=== PATIENT | female | born 1975 | race Caucasian/White ===

== ENCOUNTER 2016-09-28 17:46 | Emergency (ER) | payer SELFPAY ==
[~2016-09-28] VITALS: Ht 162.6 cm; Wt 79.0 kg
[~2016-09-28 17:46] MED LIST: ALBUTEROL0.5 % IN; AMOXICILLIN500 MG OR; AMOXICILLIN500 MG PO; AUGMENTIN875TAB PO; CEPHALEXIN500 MG OR; DIFLUCAN150 MG PO; KEFLEX500 MG OR; LORTAB 5 OR; LORTAB5 PO; MEDDOSEPAK PO; MOTRIN800 MG OR; NAPROXEN500 MG PO; PERCOCET 5/325M1 TAB PO; VENTOLIN HFA IN; ZITHROMAX500 MG PO
[2016-09-28] MEDS ORDERED: MAXZIDE-2537.5 MG/TA PO (18:15)
[2016-09-28] MEDS ORDERED: [UNRECOGNIZED DRUG - OTHER] PO (18:27)
[2016-09-28 18:44] LABS: HEMATOCRIT 38.7 % (37.0-47.0); HEMOGLOBIN 12.4 g/dl (12.0-16.0); IMMATURE GRANULOCYTES 0.2 % (0.0-1.0); MEAN CELL VOLUME 79.5 fL CALC (80.0-100.0); MEAN CORPUSCULAR HGB 25.5 pG CALC (26.0-32.0); NEUT# 6.48 thou/uL (2.00-7.15); RED BLOOD COUNT 4.87 mill/uL (4.20-5.60); RED CELL DISTRI WIDTH 17.6 % (11.5-15.5)
[2016-09-28 18:56] LABS: ALBUMIN 4.5 g/dL (3.2-5.0); ALKALINE PHOSPHATASE 67 u/l (38-126); ANION GAP 15 (6-22 (CALC)); BILIRUBIN, TOTAL 0.4 mg/dL (0.0-1.4); BUN 9 mg/dL (7-17); BUN/CREATININE RATIO 9 (12-20 (CALC)); CALCIUM 9.2 mg/dL (8.4-10.2); CARBON DIOXIDE 26 mmol/l (22-30); CHLORIDE 101 mmol/l (95-108); GFR > 60 ML/MIN (>=60 (CALC)); GFR FOR AFR.AMER. > 60 ML/MIN (>=60 (CALC)); GLUCOSE 82 mg/dL (65-105); POTASSIUM 3.2 mmol/l (3.5-5.1); SGOT/AST 33 u/l (14-36); SGPT/ALT 27 u/l (9-52); SODIUM 138 mmol/l (137-146); TOTAL PROTEIN 7.8 g/dL (6.3-8.2)
[2016-09-28 19:08] LABS: MYOGLOBIN 34 ng/mL (0 - 62)
[2016-09-28 20:20] VITALS: BP 108/57
== END 2016-09-28 20:14 | disposition left against medical advice (07) | DRG 313 ==
LOC: ED 17:46
PROVIDERS: Emergency Medicine
DX: R07.9 Chest pain, unspecified (principal); Z91.19 Patient's noncompliance with other medical treatment and regimen

== ENCOUNTER 2018-08-17 11:27 | Day surgery (SDC) | payer OTHER ==
[~2018-08-17 11:27] MED LIST changes: +ACID CONTROL PO; +CALCIUM500 M3 PO; +FERROUS SULF325 M3 PO; +MAXZIDE-2537.5 MG/TA PO; +[UNRECOGNIZED DRUG - OTHER] PO
[2018-08-17 14:42] VITALS: BP 118/68
== END 2018-08-17 15:00 | disposition home or self-care (01) | DRG 382 ==
LOC: ENDO 11:27 → ORM 11:40 → ENDO 12:10
PROVIDERS: ATTEND Internal Medicine Gastroenterology
PROC: 0DB48ZX Excision of Esophagogastric Junction, Via Natural or Artificial Opening Endoscopic, Diagnostic (ICD-10-PCS; principal; 2018-08-17)
PROC: 0D758DZ Dilation of Esophagus with Intraluminal Device, Via Natural or Artificial Opening Endoscopic (ICD-10-PCS; 2018-08-17)
DX: K22.70 Barrett's esophagus without dysplasia (principal); K22.2 Esophageal obstruction; K29.70 Gastritis, unspecified, without bleeding; K44.9 Diaphragmatic hernia without obstruction or gangrene; K59.00 Constipation, unspecified; K62.5 Hemorrhage of anus and rectum; Z98.84 Bariatric surgery status

== ENCOUNTER 2021-11-27 10:00 | Observation (INO) | payer OTHER ==
[2021-11-27] VITALS (9 sets, daily range): BP systolic 118–182; BP diastolic 63–90
[~2021-11-27] VITALS: Ht 165.1 cm; Wt 75.0 kg
[2021-11-27 10:33] LABS: URINE BILIRUBIN - DIPSTICK NEGATIVE (NEGATIVE); URINE BLOOD DIPSTICK TRACE-INTACT (NEGATIVE); URINE COLOR YELLOW; URINE GLUCOSE - DIPSTICK NEGATIVE (NEGATIVE); URINE KETONE 15 mg/dL (NEGATIVE); URINE LEUK ESTERASE NEGATIVE (NEGATIVE); URINE PROTEIN - DIPSTICK NEGATIVE (NEG-TRACE); URINE SPECIFIC GRAVITY 1.015; URINE UROBILINOGEN - DIPSTICK 0.2 E.U./dL (0.2)
[2021-11-27 10:35] LABS: URINE NITRITE - DIPSTICK NEGATIVE (Negative)
[2021-11-27 10:36] LABS: HEMATOCRIT 41.4 % (37.0-47.0); HEMOGLOBIN 12.9 g/dl (12.0-16.0); IMMATURE GRANULOCYTES 0.2 % (0.0-5.0); MEAN CELL VOLUME 83.1 fL CALC (80.0-100.0); MEAN CORPUSCULAR HGB 25.9 pG CALC (26.0-32.0); MEAN CORPUSCULAR HGB CONC 31.2 g/dL CAL (32.0-36.0); NEUT# 11.14 thou/uL (2.00-7.15); RED BLOOD COUNT 4.98 mill/uL (4.20-5.60); RED CELL DISTRI WIDTH 20.7 % (11.5-15.5)
[2021-11-27 10:37] LABS: GFR > 60 ML/MIN (>=60 (CALC)); GFR FOR AFR.AMER. > 60 ML/MIN (>=60 (CALC))
[2021-11-27 11:10] LABS: ALBUMIN 4.9 g/dL (3.2-5.0); ALKALINE PHOSPHATASE 91 u/l (38-126); ANION GAP 14 (6-22 (CALC)); BILIRUBIN, TOTAL 0.6 mg/dL (0.0-1.4); BUN 4 mg/dL (7-17); BUN/CREATININE RATIO 5 (12-20 (CALC)); CARBON DIOXIDE 22 mmol/l (22-30); CHLORIDE 104 mmol/l (95-108); CREATININE 0.8 mg/dL (0.5-1.0); GFR > 60 ML/MIN (>=60 (CALC)); GFR FOR AFR.AMER. > 60 ML/MIN (>=60 (CALC)); LIPASE 64 u/l (23-300); MAGNESIUM 1.7 mg/dL (1.6-2.3); POTASSIUM 3.6 mmol/l (3.5-5.1); SGOT/AST 26 u/l (14-36); SODIUM 136 mmol/l (137-146); TOTAL PROTEIN 7.9 g/dL (6.3-8.2)
[2021-11-27] MEDS ORDERED: OMEPRAZOLE DR40 MG PO (12:13)
[2021-11-27] MEDS ORDERED: VENTOLIN HFA IN (12:13)
[2021-11-27] MEDS ORDERED: MAXZIDE-25MG1 COMBO PO (12:14)
[2021-11-28 04:32] VITALS: BP 113/60
[2021-11-28 05:22] LABS: IMMATURE GRANULOCYTES 0.2 % (0.0-5.0); MEAN CELL VOLUME 84.9 fL CALC (80.0-100.0); MEAN CORPUSCULAR HGB 26.2 pG CALC (26.0-32.0); MEAN CORPUSCULAR HGB CONC 30.9 g/dL CAL (32.0-36.0); NEUT# 9.43 thou/uL (2.00-7.15); RED BLOOD COUNT 3.97 mill/uL (4.20-5.60); RED CELL DISTRI WIDTH 20.6 % (11.5-15.5)
[2021-11-28 05:30] LABS: HEMATOCRIT 33.7 % (37.0-47.0); HEMOGLOBIN 10.4 g/dl (12.0-16.0)
[2021-11-28 05:36] LABS: ANION GAP 10 (6-22 (CALC)); BUN 6 mg/dL (7-17); BUN/CREATININE RATIO 8 (12-20 (CALC)); CARBON DIOXIDE 22 mmol/l (22-30); CHLORIDE 108 mmol/l (95-108); CREATININE 0.7 mg/dL (0.5-1.0); GFR > 60 ML/MIN (>=60 (CALC)); GFR FOR AFR.AMER. > 60 ML/MIN (>=60 (CALC)); MAGNESIUM 2.1 mg/dL (1.6-2.3); POTASSIUM 3.5 mmol/l (3.5-5.1); SODIUM 135 mmol/l (137-146)
[2021-11-28] MEDS ORDERED: BACTRIM DS1 TAB PO (09:45)
[2021-11-28] MEDS ORDERED: ONDANSETRON4 MG PO (09:45)
[2021-11-28] MEDS ORDERED: PERCOCET 5/325M1 TAB PO (09:47)
== END 2021-11-28 11:10 | disposition home or self-care (01) | DRG 392 ==
LOC: ED 10:00 → ED-I 10:32 → ED 10:32 → ED-I 11:40 → ED 12:00 → MS2 12:01
PROVIDERS: Family Medicine; ADMIT Internal Medicine; ATTEND Internal Medicine
DX: K52.9 Noninfective gastroenteritis and colitis, unspecified (principal); K44.9 Diaphragmatic hernia without obstruction or gangrene; J45.909 Unspecified asthma, uncomplicated; Z87.11 Personal history of peptic ulcer disease; Z98.84 Bariatric surgery status; Z20.822 Contact with and (suspected) exposure to COVID-19
CPT/HCPCS: G0378; J1650; Q9967

== ENCOUNTER 2022-01-13 18:07 | Emergency (ER) | payer OTHER ==
[~2022-01-13] VITALS: Ht 165.1 cm; Wt 72.7 kg
[~2022-01-13 18:07] MED LIST changes: +BACTRIM DS1 TAB PO; +MAXZIDE-25MG1 COMBO PO; +OMEPRAZOLE DR40 MG PO; +ONDANSETRON4 MG PO
[2022-01-13 19:44] LABS: IMMATURE GRANULOCYTES 0.2 % (0.0-5.0); MEAN CELL VOLUME 88.3 fL CALC (80.0-100.0); MEAN CORPUSCULAR HGB 28.8 pG CALC (26.0-32.0); MEAN CORPUSCULAR HGB CONC 32.5 g/dL CAL (32.0-36.0); NEUT# 13.09 thou/uL (2.00-7.15); RED BLOOD COUNT 4.8 mill/uL (4.20-5.60); RED CELL DISTRI WIDTH 20.2 % (11.5-15.5)
[2022-01-13 19:47] LABS: HEMATOCRIT 42.4 % (37.0-47.0); HEMOGLOBIN 13.8 g/dl (12.0-16.0)
[2022-01-13 20:03] LABS: ALBUMIN 4.6 g/dL (3.2-5.0); ALKALINE PHOSPHATASE 96 u/l (38-126); AMYLASE 69 u/l (30-110); BUN 5 mg/dL (7-17); BUN/CREATININE RATIO 8 (12-20 (CALC)); CARBON DIOXIDE 24 mmol/l (22-30); CREATININE 0.7 mg/dL (0.5-1.0); GFR FOR AFR.AMER. > 60 ML/MIN (>=60 (CALC)); GFR OTHER RACES > 60 ML/MIN (>=60 (CALC)); LIPASE 56 u/l (23-300); POTASSIUM 2.9 mmol/l (3.5-5.1); SGOT/AST 25 u/l (14-36); SODIUM 129 mmol/l (137-146); TOTAL PROTEIN 7.8 g/dL (6.3-8.2)
[2022-01-13 20:04] LABS: ANION GAP 13 (6-22 (CALC)); BILIRUBIN, TOTAL 0.3 mg/dL (0.0-1.4); CHLORIDE 95 mmol/l (95-108)
[2022-01-13 20:15] LABS: MYOGLOBIN 27 ng/mL (0 - 62)
[2022-01-13 21:28] VITALS: BP 157/91
[2022-01-13 21:31] VITALS: BP 153/83
[2022-01-13] MEDS ORDERED: PROMETHAZINE HY25 M1 PO (22:00)
[2022-01-13 22:03] VITALS: BP 158/87
[2022-01-13 22:30] VITALS: BP 161/105
[2022-01-13 22:34] VITALS: BP 161/105
== END 2022-01-13 22:39 | disposition home or self-care (01) | DRG 392 ==
LOC: ED 18:07
PROVIDERS: Emergency Medicine
DX: R11.2 Nausea with vomiting, unspecified (principal); R10.9 Unspecified abdominal pain; E87.6 Hypokalemia; E87.1 Hypo-osmolality and hyponatremia; Z90.710 Acquired absence of both cervix and uterus; Z98.84 Bariatric surgery status
CPT/HCPCS: Q9967

== ENCOUNTER 2022-09-14 14:49 | Emergency (ER) | payer OTHER ==
[~2022-09-14] VITALS: Ht 165.1 cm; Wt 83.0 kg
[~2022-09-14 14:49] MED LIST changes: +PROMETHAZINE HY25 M1 PO
[2022-09-14 15:13] VITALS: BP 116/87
[2022-09-14] MEDS ORDERED: ARNUITY EL100 MCG/AC PO ×2 (15:36→17:03)
[2022-09-14] MEDS ORDERED: VENTOLIN HFA108 MCG PO ×2 (15:36→17:03)
[2022-09-14] MEDS ORDERED: PREDNISONE50 MG PO ×2 (15:36→17:03)
[2022-09-14 16:00] VITALS: BP 112/58
[2022-09-14] MEDS ORDERED: ZPAK PO ×2 (16:26→17:03)
[2022-09-14 16:54] VITALS: BP 112/58
== END 2022-09-14 17:00 | disposition home or self-care (01) | DRG 203 ==
LOC: ED 14:49
DX: J45.901 Unspecified asthma with (acute) exacerbation (principal); Z20.822 Contact with and (suspected) exposure to COVID-19; J06.9 Acute upper respiratory infection, unspecified

== ENCOUNTER 2023-09-25 09:22 | Emergency (ER) | payer OTHER ==
[~2023-09-25] VITALS: Ht 165.1 cm; Wt 78.8 kg
[~2023-09-25 09:22] MED LIST changes: +ARNUITY EL100 MCG/AC PO; +PREDNISONE50 MG PO; +VENTOLIN HFA108 MCG PO; +ZPAK PO
[2023-09-25] MEDS ORDERED: LYRICA100 MG PO (10:31)
[2023-09-25] MEDS ORDERED: HYDROXYCHLOROQ200 MG PO (10:32)
[2023-09-25 10:38] VITALS: BP 121/104
[2023-09-25 10:45] VITALS: BP 108/69
[2023-09-25 11:10] LABS: URINE BILIRUBIN - DIPSTICK Negative (NEGATIVE); URINE BLOOD DIPSTICK Negative (NEGATIVE); URINE GLUCOSE - DIPSTICK Negative (NEGATIVE); URINE KETONE Negative (NEGATIVE); URINE LEUK ESTERASE Negative (NEGATIVE); URINE NITRITE - DIPSTICK Negative (Negative); URINE PH 7.5 (4.5-8.0); URINE PROTEIN - DIPSTICK Negative (NEG-TRACE); URINE SPECIFIC GRAVITY 1.015; URINE UROBILINOGEN - DIPSTICK 0.2 E.U./dL (0.2)
[2023-09-25 11:11] LABS: URINE COLOR Yellow
[2023-09-25 11:15] VITALS: BP 106/75
[2023-09-25 11:26] LABS: BASO% 0.7 % (0-3); EOS% 2.8 % (0-8); HEMATOCRIT 39.6 % (37.0-47.0); HEMOGLOBIN 12.9 g/dl (12.0-16.0); IMMATURE GRANULOCYTES 0.1 % (0.0-5.0); LYMPH% 16.3 % (15-41); MEAN CORPUSCULAR HGB 30.9 pG CALC (26.0-32.0); MEAN CORPUSCULAR HGB CONC 32.6 g/dL CAL (32.0-36.0); MONO% 6.7 % (2-13); NEUT# 7.82 thou/uL (2.00-7.15); NEUT% 73.4 % (42-76); RED BLOOD COUNT 4.18 mill/uL (4.20-5.60); RED CELL DISTRI WIDTH 12.8 % (11.5-15.5)
[2023-09-25 11:27] LABS: MEAN CELL VOLUME 94.7 fL CALC (80.0-100.0)
[2023-09-25 11:54] LABS: ALBUMIN 3.8 g/dL (3.2-5.0); ALKALINE PHOSPHATASE 69 u/l (38-126); ANION GAP 7 (6-22 (CALC)); BILIRUBIN, TOTAL 0.4 mg/dL (0.02-1.3); BUN 11 mg/dL (7-17); BUN/CREATININE RATIO 12 (12-20 (CALC)); CARBON DIOXIDE 27 mmol/l (22-30); CHLORIDE 106 mmol/l (95-108); CREATININE 0.9 mg/dL (0.5-1.0); GFR FOR AFR.AMER. > 60 ML/MIN (>=60 (CALC)); GFR OTHER RACES > 60 ML/MIN (>=60 (CALC)); POTASSIUM 3.5 mmol/l (3.5-5.1); SGOT/AST 42 u/l (14-36); SODIUM 136 mmol/l (137-146); TOTAL PROTEIN 6.2 g/dL (6.3-8.2)
[2023-09-25] MEDS ORDERED: SODIUM CHLORIDE 0.9% 1,000 ML IV ONE (12:10)
[2023-09-25 13:51] VITALS: BP 118/80
[2023-09-25 13:57] VITALS: BP 118/80
== END 2023-09-25 13:57 | disposition home or self-care (01) | DRG 948 ==
LOC: ED 09:22
PROVIDERS: Family Medicine
DX: R53.83 Other fatigue (principal); I10 Essential (primary) hypertension; M79.7 Fibromyalgia; M35.00 Sjogren syndrome, unspecified; Z20.822 Contact with and (suspected) exposure to COVID-19

== ENCOUNTER 2024-03-28 15:09 | Emergency (ER) | payer BC ==
[~2024-03-28] VITALS: Ht 165.1 cm; Wt 77.1 kg
[2024-03-28] VITALS (14 sets, daily range): BP systolic 87–170; BP diastolic 65–97
[~2024-03-28 15:09] MED LIST changes: +HYDROXYCHLOROQ200 MG PO; +LYRICA100 MG PO
[2024-03-28] MEDS ORDERED: MORPHINE SULFATE 4 MG/ML VIAL IV ONE (15:20)
[2024-03-28] MEDS ORDERED: SODIUM CHLORIDE 0.9% 1,000 ML IV ONE ×2 (15:20→17:50)
[2024-03-28] MEDS ORDERED: ONDANSETRON HCl 4 MG/2 ML SDV IV ONE (15:20)
[2024-03-28 15:48] LABS: BASO% 0.3 % (0-3); EOS% 0.6 % (0-8); HEMATOCRIT 44.9 % (37.0-47.0); HEMOGLOBIN 14.8 g/dl (12.0-16.0); IMMATURE GRANULOCYTES 0.5 % (0.0-5.0); LYMPH% 18.5 % (15-41); MEAN CELL VOLUME 93.5 fL CALC (80.0-100.0); MEAN CORPUSCULAR HGB 30.8 pG CALC (26.0-32.0); MONO% 5.6 % (2-13); NEUT# 13.98 thou/uL (2.00-7.15); NEUT% 74.5 % (42-76); RED BLOOD COUNT 4.8 mill/uL (4.20-5.60); RED CELL DISTRI WIDTH 12.9 % (11.5-15.5)
[2024-03-28 16:04] LABS: ALBUMIN 4.8 g/dL (3.2-5.0); BILIRUBIN, TOTAL 0.5 mg/dL (0.02-1.3); CREATININE 0.7 mg/dL (0.5-1.0); POTASSIUM 3.7 mmol/l (3.5-5.1); TOTAL PROTEIN 7.5 g/dL (6.3-8.2)
[2024-03-28] MEDS ORDERED: PROMETHAZINE HCL 25 MG/ML AMP IM ONE (16:25)
[2024-03-28] MEDS ORDERED: LACTATED RINGER'S 1,000 ML IV ONE (19:45)
[2024-03-28 19:48] LABS: URINE BILIRUBIN - DIPSTICK Negative (NEGATIVE); URINE BLOOD DIPSTICK Trace-intact (NEGATIVE); URINE GLUCOSE - DIPSTICK Negative (NEGATIVE); URINE KETONE 15 mg/dL (NEGATIVE); URINE LEUK ESTERASE Negative (NEGATIVE); URINE NITRITE - DIPSTICK Negative (Negative); URINE PROTEIN - DIPSTICK Negative (NEG-TRACE); URINE UROBILINOGEN - DIPSTICK 0.2 E.U./dL (0.2)
[2024-03-28 19:50] LABS: URINE COLOR Yellow
[2024-03-28] MEDS ORDERED: PROMETHAZINE HCL 25 MG/ML AMP IV ONE (20:00)
[2024-03-28] MEDS ORDERED: PROMETHAZINE HY25 M1 PO (20:45)
== END 2024-03-28 22:00 | disposition home or self-care (01) | DRG 392 ==
LOC: ED 15:09
PROVIDERS: Family Medicine
DX: A08.4 Viral intestinal infection, unspecified (principal); K51.90 Ulcerative colitis, unspecified, without complications
CPT/HCPCS: Q9967

== ENCOUNTER 2024-04-02 12:29 | Observation (INO) | payer BC ==
[2024-04-02] VITALS (8 sets, daily range): BP systolic 96–157; BP diastolic 59–103
[~2024-04-02] VITALS: Ht 165.1 cm; Wt 77.0 kg
[2024-04-02] MEDS ORDERED: SODIUM CHLORIDE 0.9% 1,000 ML IV ONE ×2 (12:40→17:15)
[2024-04-02] MEDS ORDERED: ONDANSETRON HCl 4 MG/2 ML SDV IV ONE (12:40)
[2024-04-02] MEDS ORDERED: ONDANSETRON HCl 4 MG/2 ML SDV IV STA (12:56)
[2024-04-02] MEDS ORDERED: Pantoprazole Sodium 40 MG VIAL (Protonix) IV ONE (13:00)
[2024-04-02] MEDS ORDERED: PROMETHAZINE HCL 25 MG/ML AMP IV ONE (13:00)
[2024-04-02] MEDS ORDERED: FAMOTIDINE 10MG/ML 2ML SDV IV ONE (13:00)
[2024-04-02 13:15] LABS: BASO% 0.2 % (0-3); EOS% 0.6 % (0-8); HEMATOCRIT 43.1 % (37.0-47.0); HEMOGLOBIN 15.1 g/dl (12.0-16.0); IMMATURE GRANULOCYTES 0.6 % (0.0-5.0); LYMPH% 20.8 % (15-41); MEAN CELL VOLUME 88.1 fL CALC (80.0-100.0); MEAN CORPUSCULAR HGB 30.9 pG CALC (26.0-32.0); MONO% 5.6 % (2-13); NEUT# 12.75 thou/uL (2.00-7.15); NEUT% 72.2 % (42-76); RED BLOOD COUNT 4.89 mill/uL (4.20-5.60); RED CELL DISTRI WIDTH 12.4 % (11.5-15.5)
[2024-04-02 13:24] LABS: ALBUMIN 4.3 g/dL (3.2-5.0); BILIRUBIN, TOTAL 0.8 mg/dL (0.02-1.3); CREATININE 0.9 mg/dL (0.5-1.0); POTASSIUM 2.9 mmol/l (3.5-5.1)
[2024-04-02] MEDS ORDERED: SODIUM CHLORIDE 0.9% 1,000 ML IV STA (13:42)
[2024-04-02] MEDS ORDERED: PROMETHAZINE HCL 25 MG/ML AMP IM ONE (13:50)
[2024-04-02] MEDS ORDERED: POTASSIUM CHLORIDE 20MEQ 100 ML IV ONE (14:20)
[2024-04-02] MEDS ORDERED: MORPHINE SULFATE 4 MG/ML VIAL IV STA (14:43)
[2024-04-02 14:55] LABS: URINE BLOOD DIPSTICK Trace-lysed (NEGATIVE); URINE GLUCOSE - DIPSTICK Negative (NEGATIVE); URINE KETONE 80 mg/dL (NEGATIVE); URINE LEUK ESTERASE Negative (NEGATIVE); URINE NITRITE - DIPSTICK Negative (Negative); URINE PH 7.5 (4.5-8.0); URINE PROTEIN - DIPSTICK 30 mg/dL (NEG-TRACE); URINE UROBILINOGEN - DIPSTICK 0.2 E.U./dL (0.2)
[2024-04-02 14:57] LABS: URINE COLOR Yellow
[2024-04-02 15:03] LABS: URINE AMORPH SEDIMENT MANY hpf (NONE-FEW)
[2024-04-02 15:05] LABS: URINE RBC 0-2 RBC/hpf (0-5)
[2024-04-02 15:06] LABS: URINE SQUAMOUS EPITHELIAL CELL FEW EPI/hpf (0-FEW); URINE WBC 0-2 WBC/hpf (0-5)
[2024-04-02] MEDS ORDERED: PIPERACILLIN Sodium-Tazobactam 3.375 GM in SODIUM CHLORIDE 0.9% 100 ML IV ONE (17:15)
[2024-04-02] MEDS ORDERED: ONDANSETRON HCl 4 MG/2 ML SDV IV PRN (17:25)
[2024-04-02] MEDS ORDERED: MAGNESIUM HYDROXIDE 30 ML UDC PO PRN (17:25)
[2024-04-02] MEDS ORDERED: PROMETHAZINE HCL 25 MG/ML AMP IV PRN (17:25)
[2024-04-02] MEDS ORDERED: ACETAMINOPHEN 325 MG/TAB PO PRN (17:25)
[2024-04-02] MEDS ORDERED: SODIUM CHLORIDE 0.9% 1,000 ML IV PRN (17:25)
[2024-04-02] MEDS ORDERED: ENOXAPARIN SODIUM 40 MG/0.4 ML SYR SC SCH (21:00)
[2024-04-02] MEDS ORDERED: MORPHINE SULFATE 4 MG/ML VIAL IV PRN (22:20)
[2024-04-03] VITALS (9 sets, daily range): BP systolic 92–124; BP diastolic 44–67
[2024-04-03] MEDS ORDERED: SODIUM CHLORIDE 0.9% 10 ML SYR IV PRN (03:05)
[2024-04-03] MEDS ORDERED: SODIUM CHLORIDE 0.9% 10 ML SYR IV SCH (06:00)
[2024-04-03 08:04] LABS: BASO% 0.5 % (0-3); EOS% 1.6 % (0-8); HEMATOCRIT 34.8 % (37.0-47.0); HEMOGLOBIN 11.9 g/dl (12.0-16.0); IMMATURE GRANULOCYTES 0.5 % (0.0-5.0); LYMPH% 33.4 % (15-41); MEAN CELL VOLUME 91.3 fL CALC (80.0-100.0); MEAN CORPUSCULAR HGB 31.2 pG CALC (26.0-32.0); MEAN CORPUSCULAR HGB CONC 34.2 g/dL CAL (32.0-36.0); MONO% 7.6 % (2-13); NEUT# 6.01 thou/uL (2.00-7.15); NEUT% 56.4 % (42-76); RED BLOOD COUNT 3.81 mill/uL (4.20-5.60); RED CELL DISTRI WIDTH 12.8 % (11.5-15.5)
[2024-04-03 08:22] LABS: BILIRUBIN, TOTAL 0.6 mg/dL (0.02-1.3); CREATININE 0.7 mg/dL (0.5-1.0); MAGNESIUM 1.8 mg/dL (1.6-2.3); POTASSIUM 3.1 mmol/l (3.5-5.1)
[2024-04-03 08:38] LABS: ALBUMIN 3.1 g/dL (3.2-5.0); TOTAL PROTEIN 5.3 g/dL (6.3-8.2)
[2024-04-03] MEDS ORDERED: POTASSIUM CHLORIDE 20 MEQ/TAB PO SCH (10:00)
[2024-04-03] MEDS ORDERED: Pantoprazole Sodium 40 MG VIAL (Protonix) IV SCH (10:00)
[2024-04-03] MEDS ORDERED: POTASSIUM CHLORIDE 20 MEQ/PKT POWDER PO SCH (11:30)
[2024-04-03] MEDS ORDERED: D5 1/2 NaCL W/KCL 20MEQ 1,000 ML IV PRN (11:35)
[2024-04-03] MEDS ORDERED: YEAST (S. BOULARDII)(S. CEREVI 250 MG CAP PO SCH (13:00)
[2024-04-04 03:42] VITALS: BP 108/62
[2024-04-04 04:48] VITALS: BP 108/62
[2024-04-04 05:08] LABS: CREATININE 0.7 mg/dL (0.5-1.0); MAGNESIUM 1.8 mg/dL (1.6-2.3); POTASSIUM 3.4 mmol/l (3.5-5.1)
[2024-04-04 05:09] LABS: BASO% 0.6 % (0-3); EOS% 1.9 % (0-8); HEMATOCRIT 32.1 % (37.0-47.0); HEMOGLOBIN 11.2 g/dl (12.0-16.0); IMMATURE GRANULOCYTES 0.4 % (0.0-5.0); LYMPH% 37.5 % (15-41); MEAN CELL VOLUME 92.8 fL CALC (80.0-100.0); MEAN CORPUSCULAR HGB 32.4 pG CALC (26.0-32.0); MEAN CORPUSCULAR HGB CONC 34.9 g/dL CAL (32.0-36.0); MONO% 7.3 % (2-13); NEUT# 4.88 thou/uL (2.00-7.15); NEUT% 52.3 % (42-76); RED BLOOD COUNT 3.46 mill/uL (4.20-5.60)
[2024-04-04 05:19] LABS: BILIRUBIN, TOTAL 0.3 mg/dL (0.02-1.3)
[2024-04-04 07:30] VITALS: BP 108/63
[2024-04-04] MEDS ORDERED: POTASSIUM CHLORIDE 20 MEQ/PKT POWDER PO SCH (08:00)
[2024-04-04 15:09] VITALS: BP 111/68
[2024-04-04 16:19] VITALS: BP 111/68
[2024-04-04 19:13] VITALS: BP 104/55
[2024-04-05] VITALS: BP 100/50
[2024-04-05 03:38] VITALS: BP 105/50
[2024-04-05 05:36] LABS: BASO% 0.6 % (0-3); EOS% 2.2 % (0-8); HEMOGLOBIN 10.2 g/dl (12.0-16.0); IMMATURE GRANULOCYTES 0.9 % (0.0-5.0); LYMPH% 31.6 % (15-41); MEAN CELL VOLUME 92.9 fL CALC (80.0-100.0); MEAN CORPUSCULAR HGB 31.6 pG CALC (26.0-32.0); MONO% 6.6 % (2-13); NEUT# 5.6 thou/uL (2.00-7.15); NEUT% 58.1 % (42-76); RED BLOOD COUNT 3.23 mill/uL (4.20-5.60); RED CELL DISTRI WIDTH 13.2 % (11.5-15.5)
[2024-04-05 05:54] LABS: ALBUMIN 2.9 g/dL (3.2-5.0); BILIRUBIN, TOTAL 0.2 mg/dL (0.02-1.3); CREATININE 0.7 mg/dL (0.5-1.0); MAGNESIUM 1.7 mg/dL (1.6-2.3); POTASSIUM 3.7 mmol/l (3.5-5.1); TOTAL PROTEIN 4.9 g/dL (6.3-8.2)
[2024-04-05 06:08] VITALS: BP 107/56
[2024-04-05] MEDS ORDERED: CIPROFLOXACN500 MG PO (09:05)
[2024-04-05] MEDS ORDERED: METRONIDAZOLE500 MG PO (09:06)
== END 2024-04-05 13:20 | disposition home or self-care (01) | DRG 387 ==
LOC: ED 12:29 → ED-I 17:10 → ED 17:41 → MS2 17:42
PROVIDERS: Family Medicine; Nurse Practitioner Family; ADMIT Internal Medicine; ATTEND Internal Medicine
PROC: 02HV33Z Insertion of Infusion Device into Superior Vena Cava, Percutaneous Approach (ICD-10-PCS; principal; 2024-04-02)
DX: K51.90 Ulcerative colitis, unspecified, without complications (principal); E87.6 Hypokalemia; K22.70 Barrett's esophagus without dysplasia; Z98.84 Bariatric surgery status; Z20.822 Contact with and (suspected) exposure to COVID-19
CPT/HCPCS: G0378; J1650; J2470; Q9967